=== PATIENT | male | born 1960 | race Caucasian/White ===

== ENCOUNTER 2024-02-03 07:41 | Inpatient (IN) | payer OTHER ==
[~2024-02-03] VITALS: Ht 182.9 cm; Wt 98.0 kg
[2024-02-03] VITALS (15 sets, daily range): BP systolic 96–149; BP diastolic 59–92
[~2024-02-03 07:41] MED LIST: DIVA500EC PO
[2024-02-03 09:19] LABS: BASOPHILS ABSOLUTE AUTO 0.03 K/mm3 (0.00-0.23); BASOPHILS PERCENT AUTO 1 % (0-2); EOSINOPHILS ABSOLUTE AUTO 0.29 K/mm3 (0.00-0.68); EOSINOPHILS PERCENT AUTO 6 % (0-6); Hematocrit 41.9 % (37.0-53.0); Hemoglobin 14.5 g/dL (13.5-17.5); IMMATURE GRAN ABSOLUTE AUTO 0.01 K/mm3 (0.00-0.10); IMMATURE GRAN PERCENT AUTO 0 % (0-1); LYMPHOCYTES PERCENT AUTO 34 % (21-46); MONOCYTES ABSOLUTE AUTO 0.34 K/mm3 (0.16-1.47); MONOCYTES PERCENT AUTO 7 % (4-13); Mean Corpuscular HGB 34.4 pg (26.0-34.0); Mean Corpuscular HGB Conc 34.6 g/dL (31.5-36.5); Mean Corpuscular Volume 100 fL (80-100); Mean Platelet Volume 9.8 fL (9.1-12.4); NEUTROPHILS ABSOLUTE AUTO 2.42 K/mm3 (1.96-9.15); NEUTROPHILS PERCENT AUTO 52 % (41-73); Platelet Count 249 K/mm3 (150-400); RDW Coefficient Variation 12.3 % (11.7-14.2); Red Blood Cell Count 4.21 M/mm3 (4.30-5.90); White Blood Cell Count 4.69 K/mm3 (4.00-11.30)
[2024-02-03 09:39] LABS: Bun/Creatinine Ratio 17.2 (12.0-20.0); Calcium, Blood 9.1 mg/dL (8.5-10.1); Creatinine, Blood 0.93 mg/dL (0.60-1.20); Potassium, Blood 4.2 mmol/L (3.5-5.5)
[2024-02-03] MEDS ORDERED: Acetaminophen 325 MG TABLET PO PRN (11:05)
[2024-02-03] MEDS ORDERED: Nicotine 14 MG PATCH TOP SCH (12:24)
[2024-02-03] MEDS ORDERED: FentaNYL Citrate 50 MCG/ML 2 ML Injection IV PRN (12:25)
--- NOTE | 2024-02-03 12:30 | NUR ---
ARRIVES TO SURGICAL UNIT VIA GOURNEY, WAS ABLE TO TRANSFER SELF TO HOSPITAL BED BY SCOOTING SELF. ASSESSMENT CHARTED. PLEASANT & THANKFUL. DR MARTINS CONSULTED AT THIS TIME.
[2024-02-03] MEDS ORDERED: Lactated Ringer's 1,000 ML IV SCH ×2 (13:00→13:20)
[2024-02-03] MEDS ORDERED: Divalproex Sodium 500 MG TABLET.DR PO ONE (13:00)
--- NOTE | 2024-02-03 13:40 | NUR ---
PT ARRIVED TO UNIT VIA HOSPITAL BED. History, Chart, Medications and Allergies reviewed before start of procedure. Pre-Op teaching done. Pt verbalizes understanding. ALL BELONGINGS LEFT IN PATIENTS ROOM.
--- NOTE | 2024-02-03 13:53 | NUR ---
20G IN RAC FLUSHED WITH 10ML'S NACL. DRESSING IN TACT.
[2024-02-03] MEDS ORDERED: Tranexamic Acid 100 ML IV ONE (14:00)
[2024-02-03] MEDS ORDERED: CeFAZolin Sodium 2,000 MG in NS 100 ML IV SCH (14:00)
[2024-02-03] MEDS ORDERED: propofoL 20 ML IV ONE (15:36)
[2024-02-03] MEDS ORDERED: Midazolam HCl 1MG / ML 2ML Vial ONE (15:38)
[2024-02-03] MEDS ORDERED: Dexamethasone Sod Phos 10 MG/ML 1ML VIAL ONE (15:42)
[2024-02-03] MEDS ORDERED: Ondansetron HCl 2 MG / ML 2ML Vial ONE (15:42)
[2024-02-03] MEDS ORDERED: FentaNYL Citrate 50 MCG/ML 2 ML Injection ONE ×2 (15:46→17:06)
--- NOTE | 2024-02-03 16:04 | NUR ---
02/03/24 1604 Nuris Narvaez 1GM OF TXA GIVEN AT 1545
[2024-02-03] MEDS ORDERED: Ketorolac Tromethamine 30mg Vial ONE (16:32)
[2024-02-03] MEDS ORDERED: Bupivacaine 0.5% HCl 5 MG/ML 30MLVIAL ONE (16:36)
[2024-02-03] MEDS ORDERED: HYDROmorphone HCl/Pf 1MG SYR ONE (17:12)
--- NOTE | 2024-02-03 17:45 | NUR ---
POST OP RETURNS TO SURGICAL UNIT ON HOSPITAL BED, ALERT & ORIENTED. R HIP w/ SMALL AQUACEL; NO DRNG NOTED. PPP. WIGGLES TOES. DENIES NUMB/TING.
[2024-02-03] MEDS ORDERED: HYDROcodone 5-APAP 325 TAB PO PRN (18:40)
[2024-02-03] MEDS ORDERED: Divalproex Sodium 500 MG TABLET.DR PO SCH (21:00)
[2024-02-04] MEDS ORDERED: CeFAZolin Sodium 2,000 MG in NS 100 ML IV SCH
[2024-02-04 01:04] VITALS: BP 110/63
[2024-02-04 03:52] VITALS: BP 113/65
[2024-02-04 04:06] LABS: BASOPHILS ABSOLUTE AUTO 0.01 K/mm3 (0.00-0.23); BASOPHILS PERCENT AUTO 0 % (0-2); EOSINOPHILS PERCENT AUTO 0 % (0-6); Hematocrit 37.6 % (37.0-53.0); Hemoglobin 13.2 g/dL (13.5-17.5); IMMATURE GRAN ABSOLUTE AUTO 0.03 K/mm3 (0.00-0.10); IMMATURE GRAN PERCENT AUTO 0 % (0-1); LYMPHOCYTES ABSOLUTE AUTO 0.73 K/mm3 (0.84-5.20); LYMPHOCYTES PERCENT AUTO 9 % (21-46); MONOCYTES ABSOLUTE AUTO 0.32 K/mm3 (0.16-1.47); MONOCYTES PERCENT AUTO 4 % (4-13); Mean Corpuscular HGB 34.5 pg (26.0-34.0); Mean Corpuscular HGB Conc 35.1 g/dL (31.5-36.5); Mean Corpuscular Volume 98 fL (80-100); Mean Platelet Volume 10.1 fL (9.1-12.4); NEUTROPHILS ABSOLUTE AUTO 6.91 K/mm3 (1.96-9.15); NEUTROPHILS PERCENT AUTO 86 % (41-73); Platelet Count 224 K/mm3 (150-400); RDW Coefficient Variation 11.9 % (11.7-14.2); RDW Standard Deviation 42.9 fL (35.1-46.3); Red Blood Cell Count 3.83 M/mm3 (4.30-5.90)
[2024-02-04 04:21] LABS: Bun/Creatinine Ratio 20.6 (12.0-20.0); Calcium, Blood 8.4 mg/dL (8.5-10.1); Creatinine, Blood 0.87 mg/dL (0.60-1.20); Potassium, Blood 4.8 mmol/L (3.5-5.5)
--- NOTE | 2024-02-04 05:31 | NUR ---
SUMMARY- PT WAS ABLE TO VOID THIS SHIFT. PT HAS BEEEN UP AND WALKED APPOX 50 FT. PT DISCOMFORT MANAGED WELL. PT STATES HE SLEPT VERY WELL. PT HAS BEEN EATING AND DRINKING. NO COMPLAINTS THIS AM. CALL LIGHT IN REACH.
[2024-02-04 07:27] VITALS: BP 107/59
[2024-02-04] MEDS ORDERED: Acetaminophen325 M1 PO (11:45)
[2024-02-04] MEDS ORDERED: Nicoderm Cq1 EAC1 TOP (11:46)
[2024-02-04] MEDS ORDERED: HYDROCODONE-AC1 EA10 PO (11:46)
--- NOTE | 2024-02-04 13:02 | NUR ---
DISCHARGE WORKED WELL w/ THERAPY, PAIN WELL CONTROLLED, EATING, DRINKING, & VOIDING. RX, FWW, & DRSGS GIVEN. ESCORTED OUT VIA WC.
== END 2024-02-04 13:02 | disposition home or self-care (01) | DRG 482 ==
LOC: ER 07:41 → SURS 11:04
PROVIDERS: Emergency Medicine; Orthopaedic Surgery Sports Medicine; ADMIT Family Medicine
PROC: 0QS604Z Reposition Right Upper Femur with Internal Fixation Device, Open Approach (ICD-10-PCS; principal; 2024-02-03 14:30)
DX: S72.001A Fracture of unspecified part of neck of right femur, initial encounter for closed fracture (principal); W17.89XA Other fall from one level to another, initial encounter; M54.9 Dorsalgia, unspecified; G89.29 Other chronic pain; G40.909 Epilepsy, unspecified, not intractable, without status epilepticus; F17.210 Nicotine dependence, cigarettes, uncomplicated; Z79.899 Other long term (current) drug therapy; Z98.890 Other specified postprocedural states
CPT/HCPCS: 36415; 73502; 80048; 85025; 97110; 97162; 99284-25; A9270; C1713; C1769; J0690; J1100; J1170; J1885; J2250; J2405; J2704; J3010; J7120